=== PATIENT | male | born 1975 | race Caucasian/White ===

== ENCOUNTER 2021-08-03 17:59 | Emergency (ER) | payer OTHER ==
[~2021-08-03 17:59] MED LIST: FLEXERIL 10 MG10 MG PO; IBUPROFEN800 MG PO
== END 2021-08-03 21:29 | disposition home or self-care (01) ==
LOC: ER1 17:59
DX: R10.9 Unspecified abdominal pain (principal); Z87.442 Personal history of urinary calculi
CPT/HCPCS: 81001; 96374; 96375; 99284; J1885; J2270